=== PATIENT | female | born 2005 | race African-American/Black ===

== ENCOUNTER 2023-09-03 10:32 | Emergency (ER) | payer MEDICAID ==
[~2023-09-03] VITALS: Ht 162.6 cm; Wt 77.0 kg
[2023-09-03 10:34] VITALS: O2SAT 95
[2023-09-03 10:59] LABS: BASOPHILS % 0.5 % (0.0-2.0); DIFFERENTIAL COMMENT 0; HEMOGLOBIN. 12.1 g/dL (12.0-16.0); MEAN CORPUSCULAR VOLUME 78.2 fL (81.0-99.0); NEUTROPHILS % 69.5 % (40.0-76.0); PLATELET 303 x1000/uL (130-400); RED BLOOD CELL COUNT 4.86 mill/uL (4.2-5.4); RED CELL DISTRIBUTION WIDTH 16.2 % (11.6-14.6); WHITE BLOOD COUNT 11.4 x1000/uL (4.5-11.0)
[2023-09-03 11:29] LABS: CHLORIDE 100 mEq/L (98-107); INDEX HEMOLYSI 1 (1-3); INDEX ICTERIC 1 (1-4); INDEX LIPEMIC 1 (1-3); POTASSIUM 4.1 mEq/L (3.5-5.1); SODIUM 133 mEq/L (136-145)
[2023-09-03 11:38] LABS: ALANINE AMINOTRANSFERASE 18 IU/L (13-61); ALBUMIN 3.5 g/dL (3.4-5.0); ASPARTATE AMINOTRANSFERASE 10 IU/L (15-37); BILIRUBIN TOTAL 0.4 mg/dL (0.1-1.0); CALCIUM 9.7 mg/dL (8.5-10.1); CARBON DIOXIDE 28 mEq/L (21-32); CREATININE 0.9 mg/dL (0.6-1.3); NT PRO B-TYPE NATRIURETIC PEP 19 pg/mL (5-125); PROTEIN TOTAL 8.4 g/dL (6.0-8.3); TROPONIN I HIGH SENSITIVITY 4 ng/L (<54); UREA NITROGEN BLOOD 13 mg/dL (7-21)
[2023-09-03 11:41] LABS: GLUCOSE 433 mg/dL (70-105)
[2023-09-03 11:43] LABS: HCG SCREEN NEGATIVE
[2023-09-03] MEDS ORDERED: METFORMIN HCL 500MG TABLET PO ONE (12:30)
[2023-09-03 13:20] LABS: TROPONIN I HIGH SENSITIVITY 4 ng/L (<54)
[2023-09-03 13:34] VITALS: BP 128/69; PULSE 68; RESP 16; TEMP 98
== END 2023-09-03 14:19 | disposition home or self-care (01) ==
LOC: ER 10:32
DX: R07.89 Other chest pain (principal); J45.909 Unspecified asthma, uncomplicated; Z88.9 Allergy status to unspecified drugs, medicaments and biological substances
CPT/HCPCS: 80053; 84703; 83880; 85025; 85379; 84484; 36415; 71045; 93005; 99285; Z7610 ×2